=== PATIENT | female | born 1960 | race Caucasian/White ===

== ENCOUNTER 2024-02-05 10:27 | Emergency (ER) | payer OTHER ==
[2024-02-05 11:12] LABS: Actual Bicarbonate (HCO3v) 31.2 mEq/L (22-28); Analyzer IN Cardio ER; Calcium, Ionized (venous) 1.02 mmol/L (1.16-1.32); Chloride (VBG) 97 mmol/L (98-106); Hematocrit-VBG 30 % (36.0-47.0); Hemoglobin (Hb) 10.3 g/dL (11.7-16.1); Potassium (VBG) 3.32 mmol/L (3.70-5.30); Sodium 142 mmol/L (133-146); pH (venous) 7.431 (7.32-7.43)
[2024-02-05] MEDS ORDERED: cefTRIAXone (ROCEPHIN) 2 GM VIAL ONE (11:18)
[2024-02-05 11:34] LABS: Hematocrit 27.8 % (36.0-47.0); Hemoglobin 9.4 g/dL (12.0-16.0); Mean Corpuscular HGB CONC 33.8 g/dL (32.0-36.0); Mean Corpuscular Hemoglobin 33.3 pg (27.0-31.0); Mean Corpuscular Volume 98.6 fL (78.0-98.0); Mean Platelet Volume 9.6 fL (7.4-10.4); Platelet Count 256 10x3/uL (130-400); RBC Distribution Width 14.8 % (11.5-14.5); Red Blood Cell (RBC) Count 2.82 mill/uL (4.20-5.40)
[2024-02-05 11:47] LABS: ALT (SGPT) 16 U/L (8-55); AST (SGOT) 28 U/L (5-34); Albumin 3.4 g/dL (3.4-4.8); Alkaline Phosphatase 145 U/L (40-110); Anion Gap 17 mmol/L (10-20); BUN (Urea Nitrogen) 25 mg/dL (9.8-20.1); Bilirubin, Total 0.6 mg/dL (0.2-1.2); Calc. Creatinine Clearance 0 mL/min (70-130); Calcium 8.6 mg/dL (7.8-10.44); Carbon Dioxide 29 mmol/L (23-31); Chloride 99 mmol/L (98-107); Estimated GFR 7; Globulin 3.7 g/dL (2.4-3.5); Glucose 145 mg/dL (80-115); Potassium 3.3 mmol/L (3.5-5.1); Protein, Total 7.1 g/dL (5.8-8.1); Sodium 142 mmol/L (136-145)
[2024-02-05 12:01] LABS: Band 6 % (5-11); Hypochromia SLIGHT = 6-15 cells HPF (0-5); Lymphocytes 11 % (21-51); Monocytes 3 % (0-10); Neutrophil 78 % (42-75); Ovalocytes SLIGHT = 2-5 cells HPF (0-1); Platelet Adequacy Comment Platelets Normal; Polychromasia SLIGHT = 2-3 cells HPF (0-2); Stomatocytes MODERATE= 6-15 cells HPF (0-1)
[2024-02-05 14:22] LABS: Lactic Acid 1.28 mmol/L (0.5-2.2)
[2024-02-05] MEDS ORDERED: Ondansetron PF 4 MG/2 ML Vial ONE (16:43)
== END 2024-02-05 16:50 | disposition home or self-care (01) ==
LOC: ERS 10:27
DX: J20.9 Acute bronchitis, unspecified (principal); R19.7 Diarrhea, unspecified; N18.6 End stage renal disease; I95.9 Hypotension, unspecified; F17.210 Nicotine dependence, cigarettes, uncomplicated; Z99.2 Dependence on renal dialysis; Z79.899 Other long term (current) drug therapy
CPT/HCPCS: 71045; 80053; 82805; 83605; 85025; 87040; 94760; J0696; J2405; 36415; 96374; 96375

== ENCOUNTER 2024-02-29 17:38 | Observation (INO) | payer OTHER ==
[2024-02-29 18:50] LABS: ALT (SGPT) 8 U/L (8-55); AST (SGOT) 10 U/L (5-34); Albumin 2.9 g/dL (3.4-4.8); Alkaline Phosphatase 158 U/L (40-110); Anion Gap 14 mmol/L (10-20); BUN (Urea Nitrogen) 23 mg/dL (9.8-20.1); Bilirubin, Total 0.4 mg/dL (0.2-1.2); Calc. Creatinine Clearance 0 mL/min (70-130); Calcium 8.4 mg/dL (7.8-10.44); Carbon Dioxide 29 mmol/L (23-31); Chloride 101 mmol/L (98-107); Estimated GFR 8; Globulin 3.3 g/dL (2.4-3.5); Glucose 188 mg/dL (80-115); Potassium 2.6 mmol/L (3.5-5.1); Protein, Total 6.2 g/dL (5.8-8.1); Sodium 141 mmol/L (136-145)
[2024-02-29 19:04] LABS: Anisocytosis SLIGHT = 6-15 cells HPF (0-5); Band 5 % (5-11); Eosinophils 1 % (0-10); Hematocrit 22.3 % (36.0-47.0); Hemoglobin 7.1 g/dL (12.0-16.0); Lymphocytes 6 % (21-51); Macrocytosis SLIGHT = 6-15 cells HPF (0-5); Mean Corpuscular HGB CONC 31.8 g/dL (32.0-36.0); Mean Corpuscular Volume 103.7 fL (78.0-98.0); Mean Platelet Volume 9.1 fL (7.4-10.4); Monocytes 4 % (0-10); Neutrophil 84 % (42-75); Platelet Adequacy Comment Platelets Normal; Platelet Count 293 10x3/uL (130-400); Polychromasia SLIGHT = 2-3 cells HPF (0-2); RBC Distribution Width 15.8 % (11.5-14.5); Red Blood Cell (RBC) Count 2.15 mill/uL (4.20-5.40)
[2024-02-29] MEDS ORDERED: NS 0.9% w/ 20 MEQ KCL 1,000 ML ONE (19:14)
[2024-02-29 19:16] LABS: Magnesium 1.8 mg/dL (1.6-2.6)
[2024-02-29 19:22] LABS: Prothrombin Time 13.2 sec (12.0-14.7)
[2024-02-29 19:23] LABS: PTT 28.9 sec (22.9-36.1)
[2024-02-29] MEDS ORDERED: Potassium Chloride 20 MEQ TAB ONE (19:42)
[2024-02-29] MEDS ORDERED: D5 1/2 NS w/20 mEq KCL 1,000 ML IV SCH (20:00)
[2024-02-29] MEDS ORDERED: Potassium Chloride 20 MEQ (100 mL) BAG ONE (20:08)
[2024-02-29 20:46] LABS: Hypochromia SLIGHT = 6-15 cells HPF (0-5); Metamyelocyte 4 % (0-0); Myelocyte 2 % (0-0)
[2024-02-29] MEDS ORDERED: Acetaminophen 650 MG Suppository PR PRN (21:20)
[2024-02-29] MEDS ORDERED: Acetaminophen 325 MG TAB PO PRN (21:20)
[2024-02-29] MEDS ORDERED: Calcium Carbonate 500 MG ChewTAB PO PRN (21:20)
[2024-02-29] MEDS ORDERED: Ondansetron PF 4 MG/2 ML Vial IVP PRN (21:20)
[2024-02-29] MEDS ORDERED: Ondansetron ODT 4 MG TAB PO PRN (21:20)
[2024-02-29 23:26] VITALS: BMI 34.2
[2024-03-01] MEDS ORDERED: Prochlorperazine Maleate 5 MG TAB PO PRN (03:38)
[2024-03-01 05:14] LABS: Hematocrit 18.5 % (36.0-47.0); Hemoglobin 5.8 g/dL (12.0-16.0); Mean Corpuscular HGB CONC 31.4 g/dL (32.0-36.0); Mean Corpuscular Hemoglobin 33.1 pg (27.0-31.0); Mean Corpuscular Volume 105.7 fL (78.0-98.0); Mean Platelet Volume 9.1 fL (7.4-10.4); Platelet Count 236 10x3/uL (130-400); RBC Distribution Width 15.9 % (11.5-14.5); Red Blood Cell (RBC) Count 1.75 mill/uL (4.20-5.40)
[2024-03-01 05:23] LABS: Anion Gap 13 mmol/L (10-20); BUN (Urea Nitrogen) 25 mg/dL (9.8-20.1); Calc. Creatinine Clearance 17 mL/min (70-130); Calcium 8.1 mg/dL (7.8-10.44); Carbon Dioxide 29 mmol/L (23-31); Chloride 104 mmol/L (98-107); Estimated GFR 8; Glucose 105 mg/dL (80-115); Potassium 3.1 mmol/L (3.5-5.1); Sodium 143 mmol/L (136-145)
[2024-03-01 05:30] LABS: Band 7 % (5-11); Hypochromia SLIGHT = 6-15 cells (100X) (0-5/hpf); Lymphocytes 18 % (21-51); Macrocytosis SLIGHT = 6-15 cells (100X) (0-5/hpf); Metamyelocyte 1 % (0-0); Monocytes 5 % (0-10); Neutrophil 66 % (42-75); Plasma Cells 0 % (0-0); Platelet Adequacy Comment Appears Adequate; Reactive Lymphocytes 3 % (0-10); Total Cell Count 100
[2024-03-01] MEDS ORDERED: Apixaban 5 MG TAB PO SCH (09:00)
[2024-03-01] MEDS: Potassium Chloride 20 MEQ TAB PO SCH (09:17)
[2024-03-01] MEDS: Midodrine HCl 5 MG TAB PO SCH (09:18)
[2024-03-01] MEDS: Cholecalciferol 1,000 UNITS (25 MCG) TAB PO SCH (09:18)
[2024-03-01] MEDS: Famotidine 20 MG TAB PO SCH (09:18)
[2024-03-01] MEDS: Famotidine/PF 20 mg/2ml Vial SLOW IVP SCH (09:19)
[2024-03-01] MEDS: Venlafaxine HCl XR 150 MG CAP PO SCH (09:19)
[2024-03-01 11:08] LABS: Hematocrit 22.3 % (36.0-47.0); Hemoglobin 7.1 g/dL (12.0-16.0)
[2024-03-01 11:46] LABS: HBSAB Concentration 15.38 mIU/mL; HBsAg Index 0.31 S/CO (0-0.99); Hep B Core Total Ab NONREACTIVE (NonReactive); Hep B Core Total Index 0.09 S/CO (0-0.79); Hep B Surf AB REACTIVE (NonReactive); Hep B Surf Ag NONREACTIVE S/CO (NonReactive); Hep C IgG Ab NONREACTIVE S/CO (NonReactive); Hep C Index 0.08 S/CO (0-0.79)
[2024-03-01 16:14] VITALS: BP 113/61; TEMP 98.3
[2024-03-01] MEDS: EPOETIN ALFA-EPBX (ESRD) 40,000 UNITS/ML VIAL SC SCH (18:38)
[2024-03-01] MEDS ORDERED: Aripiprazole 15 MG TAB PO SCH (21:00)
== END 2024-03-01 19:23 | disposition home or self-care (01) ==
LOC: ERS 17:38 → OBS 21:36
PROVIDERS: ADMIT Student in an Organized Health Care Education/Training Program; ATTEND Internal Medicine
DX: N18.9 Chronic kidney disease, unspecified (principal); I12.0 Hypertensive chronic kidney disease with stage 5 chronic kidney disease or end stage renal disease; D63.1 Anemia in chronic kidney disease; Z99.2 Dependence on renal dialysis; E87.6 Hypokalemia; D72.829 Elevated white blood cell count, unspecified; C77.9 Secondary and unspecified malignant neoplasm of lymph node, unspecified; Z88.0 Allergy status to penicillin; Z88.5 Allergy status to narcotic agent; Z91.041 Radiographic dye allergy status; Z88.1 Allergy status to other antibiotic agents; Z86.711 Personal history of pulmonary embolism; Z85.3 Personal history of malignant neoplasm of breast; Z90.89 Acquired absence of other organs; Z79.01 Long term (current) use of anticoagulants; Z79.899 Other long term (current) drug therapy
CPT/HCPCS: 36430; 71045; 80048; 80053; 83735; 85014; 85018; 85025 ×2; 85610; 85730; 86704; 86706; 86803; 86850; 86900; 86901; 86920; 87340; 93005; 94760; 96374; 99285; G0378 ×3; J3480 ×2; P9016; Q5105; 36415